=== PATIENT | female | born 1965 | race Caucasian/White ===

== ENCOUNTER 2023-09-26 17:15 | Emergency (ER) | payer SELFPAY ==
[2023-09-26] MEDS: Lidocaine 1% with EPINEPHrine 1:100,000 20 ML MDV INJECT ONE (18:29)
[2023-09-26] MEDS: Bacitracin Oint 1 GM U/D Packet TOP ONE (19:24)
== END 2023-09-26 19:38 | disposition home or self-care (01) ==
LOC: JP.ED 17:15
DX: S62.630A Displaced fracture of distal phalanx of right index finger, initial encounter for closed fracture (principal); W23.0XXA Caught, crushed, jammed, or pinched between moving objects, initial encounter; Y93.89 Activity, other specified
CPT/HCPCS: 12001; 73120-26-RT; 73120-RT; 99283